=== PATIENT | female | born 1985 | race African-American/Black ===

== ENCOUNTER 2021-12-01 01:56 | Emergency (ER) | payer SELFPAY ==
[~2021-12-01] VITALS: Ht 177.8 cm; Wt 118.2 kg
[2021-12-01 02:00] VITALS: BP 144/81
[2021-12-01] MEDS ORDERED: BUPIVACAINE HCL/PF 0.5% 10 ML VIAL SQ ONE (02:15)
[2021-12-01] MEDS ORDERED: BUPIVACAINE HCL/PF 0.5% 30 ML VIAL SQ ONE (02:15)
[2021-12-01] MEDS ORDERED: PERTUSS(ACELL),DIPH,TET VAC/PF 0.5 ML SYRINGE IM. ONE (02:15)
== END 2021-12-01 04:35 | disposition home or self-care (01) ==
LOC: EMS 01:56
DX: S61.411A Laceration without foreign body of right hand, initial encounter (principal); I10 Essential (primary) hypertension; X58.XXXA Exposure to other specified factors, initial encounter; Y93.31 Activity, mountain climbing, rock climbing and wall climbing; Y92.89 Other specified places as the place of occurrence of the external cause; Y99.8 Other external cause status
CPT/HCPCS: 99283; 90715; 90471; 12004; J3490